=== PATIENT | male | born 1980 | race Two or more races ===

== ENCOUNTER → 2017-05-31 | Outpatient (REF) | payer OTHER | LOC: M SFHCLERA 10:46 | PROVIDERS: ATTEND Nurse Practitioner Family | DX: J02.9 Acute pharyngitis, unspecified (principal) ==

== ENCOUNTER → 2018-08-21 | Outpatient (CLI) | payer OTHER ==
[~2018-08-21] MED LIST: CONRAY-43 43% 50ML VIAL (Q9960) As Ordered ONE; PROHANCE 279.3MG/ML 5ML VIAL (A9576) As Ordered ONE
--- NOTE | 2018-08-21 10:02 | REP ---
MR arthrography right shoulder: with pre and post intra-articular gadolinium enhanced saline injected imaging: History: Limited range of motion and pain right shoulder. Muscle strain. Technique: The injection procedure is performed and dictated separately. Pre and post intra-articular gadolinium enhanced saline injected imaging is acquired. Imaging planes include axial, oblique coronal, oblique sagittal and ABER projection images. T1 T2-weighted scans are included with and without fat saturation. MRI findings: Pre-injection MR imaging shows normal alignment of the glenohumeral and acromioclavicular joints. There is mild osteoarthritic hypertrophy at the AC joint with slight marrow edema and some fluid in the AC joint. Mild inferolateral spurring is seen in the acromion process. No glenohumeral effusion is seen. There is a tiny sliver of subacromial subdeltoid bursal fluid. Oblique coronal T1-weighted scans shows swelling and increased signal intensity in the supraspinatus tendon consistent with tendinosis. On T2-weighted scans, there is no focal cuff lesion. Post injection imaging shows good filling and enhancement of the right glenohumeral articulation. No loose body is seen. Infraspinatus, subscapularis, and biceps tendons appear intact. There is no evidence of full-thickness rotator cuff tear on T1-weighted fat sat post injection image. ABER projection image however shows contrast-enhanced injected saline undermining the base of the anterior labrum. This is consistent with a nondisplaced anterior labral tear. In deed there is a tiny posteroinferior para-labral cyst 4 mm in diameter seen on T2-weighted scans. Impression: Nondisplaced anterior inferior labral cartilage tear. Supraspinatus tendonitis tendinosis change. No rotator cuff tear seen. Mild AC joint osteoarthritis and tiny bursal effusion. Electronically Signed by Trip Willis MD 08/21/2018 02:39 P
--- NOTE | 2018-08-21 16:07 | REP ---
Procedure: Right shoulder arthrogram The procedure was performed under the direct supervision of Dr. Willis. History: Right shoulder pain The benefits and risks including but not limited to pain, infection, bleeding and anaphylaxis were explained to the patient and informed consent was obtained. Technique: The right glenohumeral joint space was localized using fluoroscopic guidance. The skin was prepped and draped in a sterile fashion. 1% lidocaine was used as a local anesthetic. Using fluoroscopic guidance a 22 gauge spinal needle was inserted and advanced into the joint. 0.5 ml of Conray 43 was injected to verify placement. 11 ml of a solution containing 20 ml of sterile saline and 0.15 ml of ProHance was injected into the joint. The needle was removed and the patient was taken to MRI for postprocedural imaging. The patient tolerated the procedure well and there were no immediate complications. Less than 6 seconds of fluoro time was utilized for this procedure. Reviewed by KRUNAL Lofton 08/21/2018 03:57 P Electronically Signed by Trip Willis MD 08/21/2018 03:59 P
== END ==
LOC: M RADPRO 06:46
PROVIDERS: ATTEND Clinical Nurse Specialist Psychiatric/Mental Health, Adult
DX: M75.102 Unspecified rotator cuff tear or rupture of left shoulder, not specified as traumatic (principal); M62.81 Muscle weakness (generalized)
CPT/HCPCS: 23350; 73223; 77002; A9576; Q9960

== ENCOUNTER 2019-03-13 09:48 | Emergency (ER) | payer OTHER ==
[~2019-03-13] VITALS: Ht 167.6 cm; Wt 94.2 kg
[2019-03-13] MEDS ORDERED: MAGN400C PO (10:05)
[2019-03-13] MEDS ORDERED: EQLTAB93 PO (10:05)
[2019-03-13] MEDS ORDERED: MULTCAP PO (10:05)
[2019-03-13] MEDS ORDERED: BUPR100T3 PO (10:05)
[2019-03-13] MEDS ORDERED: RANI1TAB38 PO (10:05)
[2019-03-13] MEDS ORDERED: OMEP40CA97 PO (10:05)
[2019-03-13] MEDS ORDERED: ATOR1TAB21 PO (10:05)
[2019-03-13] MEDS ORDERED: KETOROLAC 30 MG/ML VIAL (J1885) IV ONE (10:30)
[2019-03-13 10:33] LABS: BASO % 0.6 % (0.0-1.0); EOS # 0.1 10^3/uL (0.0-0.5); EOS % 2.2 % (0.0-3.0); HEMATOCRIT 45.2 % (42.0-52.0); HEMOGLOBIN 16.6 g/dl (13.5-17.5); LYMPH % 36.6 % (24.0-44.0); MEAN CORPUSCULAR HEMOGLOBIN 31.6 pg (27.0-33.0); MEAN CORPUSCULAR VOLUME 85.9 fl (80.0-96.0); MONO # 0.4 10^3/uL (0.0-0.8); MONO % 7.8 % (0.0-5.0); NEUTROPHILS # 2.8 10^3/uL (1.5-8.5); NEUTROPHILS % 52.4 % (36.0-66.0); PLATELET COUNT, AUTOMATED 198 10^3/uL (150-450); RED BLOOD COUNT 5.26 10^6/uL (4.30-6.10); WHITE BLOOD COUNT 5.4 10^3/uL (4.0-10.0)
[2019-03-13 10:45] LABS: INR 1.16; PROTHROMBIN TIME 14.6 SECONDS (11.8-14.0)
[2019-03-13 10:48] LABS: D-DIMER QUANT 287.77 ng/ml (<500)
[2019-03-13 10:52] LABS: MEAN CORPUSCULAR HGB CONC 36.7 g/dl (32.0-36.5)
--- NOTE | 2019-03-13 10:52 | REP ---
CHEST, PORTABLE: There is no evidence of acute infiltrate. No pleural effusion is seen. The heart is normal in size. The mediastinal silhouette is unremarkable. The visualized osseous structures are intact. IMPRESSION: No acute pulmonary disease. Electronically Signed by Maikel Cruz MD 03/14/2019 05:50 P
[2019-03-13 11:05] LABS: ALBUMIN 4.5 GM/DL (3.2-5.2); ALT/SGPT 49 U/L (12-78); BILIRUBIN,DIRECT 0.2 MG/DL (0.0-0.2); BILIRUBIN,TOTAL 0.7 MG/DL (0.2-1.0); BLOOD UREA NITROGEN 15 MG/DL (7-18); CALCIUM LEVEL 9.2 MG/DL (8.5-10.1); CARBON DIOXIDE LEVEL 30 MEQ/L (21-32); CHLORIDE LEVEL 106 MEQ/L (98-107); CK-MB VALUE MASS < 1.0 NG/ML (<3.6); CPK CREATINE PHOSPHOKINASE 120 U/L (39-308); CREATININE FOR GFR 1.25 MG/DL (0.70-1.30); FREE T4 1.01 NG/DL (0.76-1.46); GLOMERULAR FILTRATION RATE > 60.0 (>60); GLUCOSE, FASTING 85 MG/DL (70-100); LIPASE 220 U/L (73-393); MB/CK RELATIVE INDEX 0.83 (< OR =4); NT-PRO BNP 9 PG/ML (<125); POTASSIUM SERUM 3.6 MEQ/L (3.5-5.1); SODIUM LEVEL 143 MEQ/L (136-145); TOTAL PROTEIN 7.7 GM/DL (6.4-8.2); TROPONIN I < 0.02 NG/ML (< 0.10)
[2019-03-13 11:09] LABS: ERYTHROCYTE SEDIMENTATION RATE 1 mm/hr (0-15)
[2019-03-13 12:45] VITALS: BP 110/67
[2019-03-13] MEDS ORDERED: NAPR-837 PO (13:07)
--- NOTE | 2019-03-13 15:49 | ECGEPIP ---
[facility] - ED Test Date: 2019-03-13 Pat Name: MARJORIE BRAY Department: Room: - Gender: Male Coagulant Dipper: almas : 1980 Requested By: Kassandra Caldwell Order Number: [id number] Reading MD: Kassandra Caldwell Measurements Intervals [place] Rate: 69 P: 40 OK: 158 QRS: 1 QRSD: 116 T: -3 QT: 396 QTc: 427 Interpretive Statements SINUS RHYTHM MODERATE INTRAVENTRICULAR CONDUCTION DELAY NSTTW abnormalities NO PRIOR Electronically Signed on 03-13-2019 15:49:14 EDT by Kassandra Caldwell
== END 2019-03-13 13:52 | disposition home or self-care (01) ==
LOC: M ED 09:48
DX: R07.81 Pleurodynia (principal); R06.02 Shortness of breath; E78.00 Pure hypercholesterolemia, unspecified; Z79.899 Other long term (current) drug therapy
CPT/HCPCS: 71045; 80048; 80076; 82550; 82553; 83690; 83880; 84439; 84443; 84484; 85025; 85379; 85610; 85652; 87040; 93005; 93041; 94760; 96374; 99285; J1885